=== PATIENT | male | born 1945 | race Caucasian/White ===

== ENCOUNTER → 2016-05-14 | Outpatient (CLI) | payer MEDICARE ==
--- NOTE | 2016-05-14 14:51 | Diagnostic Imaging Report ---
PROCEDURE: CT chest without contrast. TECHNIQUE: Multiple contiguous axial images were obtained through the chest without the use of intravenous contrast. INDICATION: COPD, follow-up chest exam. FINDINGS: The previous lung screening CT chest exam performed on 02/03/2016 noted a 0.9 cm nodular density in the left lung base near the costophrenic angle. This finding is felt to be secondary to scar formation. On this exam that density has more of a linear appearance than a nodule and I do suspect that this is related to scar formation and not a neoplastic mass. In the interval since the previous study, a new band of increased density has developed in the left lung base near the diaphragm. I suspect that this is secondary to scar formation/atelectasis as well. It would be less likely that there is an element of acute pneumonia present. The chronic pulmonary changes seen on the prior study are also again visualized and no different. There is no other parenchymal mass identified and there is no sign of failure, pneumonia, or pleural effusion to indicate an acute abnormality. The heart size is within normal limits and stable when compared to the prior exam. As noted on the prior study, there is a small pericardial effusion. This is unchanged when compared to the previous study. The coronary artery calcifications noted previously are also no different. As on the prior exam, the ascending aorta is dilated measuring 4.6 x 4.7 cm. The descending thoracic aorta is normal in caliber. There are few small nonspecific mediastinal nodes. The thyroid gland is unremarkable. There is no obvious breast mass. The sections through the upper abdomen fail to show any sign of an acute abnormality. The bone windows are unremarkable for a fracture or for a destructive lesion. IMPRESSION: 1. The nodular density in the left lung base seen previously has more of a linear appearance on this exam. This finding is felt to be secondary to scar formation and not to a malignant process. There also appears to be a new band of atelectasis/infiltrate in the left lung base. There is no other parenchymal abnormality to suggest malignancy, but a six-month follow-up CT chest exam will be recommended for continued evaluation. 2. There are chronic pulmonary changes present, but there is no sign of an acute abnormality. 3. The dilated ascending aorta seen previously appears stable. Dictated by: Dictated on workstation # [id number]
== END ==
LOC: RAD 13:06
PROVIDERS: ATTEND Nurse Practitioner Family
DX: J43.9 Emphysema, unspecified (principal); J42 Unspecified chronic bronchitis; E66.9 Obesity, unspecified; Z72.0 Tobacco use; R91.1 Solitary pulmonary nodule; R06.00 Dyspnea, unspecified
CPT/HCPCS: 71250

== ENCOUNTER → 2016-11-02 | Outpatient (CLI) | payer MEDICARE ==
--- NOTE | 2016-11-02 15:39 | Diagnostic Imaging Report ---
PROCEDURE: CT chest without contrast. TECHNIQUE: Multiple contiguous axial images were obtained through the chest without the use of intravenous contrast. INDICATION: Followup lung nodule. COPD. Chronic bronchitis. COMPARISON: CT chest of 05/14/2016. FINDINGS: Curvilinear area of thickening in the inferior lingula is demonstrating no definitive change allowing for slight difference in the appearance based on the technique and slice selection. There is upper lobe predominant emphysema. No significant consolidation or suspicious nodule seen. The thoracic aorta is normal in caliber. There is no mediastinal mass. The heart size is normal. There is a small pericardial effusion. The osseous structures appear grossly unremarkable. Slight nodularity in the right adrenal gland up to 1.2 cm in size is similar to prior exams likely related to an adenoma. IMPRESSION: 1. Curvilinear area of consolidation along the left lung base is likely related to atelectasis and scarring. 2. Small pericardial effusion. 3. Upper lobe predominant emphysema. Dictated by: Dictated on workstation # [id number]
== END ==
LOC: RAD 13:01
PROVIDERS: ATTEND Internal Medicine Critical Care Medicine
DX: J43.9 Emphysema, unspecified (principal); J90 Pleural effusion, not elsewhere classified; E66.9 Obesity, unspecified; Z72.0 Tobacco use
CPT/HCPCS: 71250

== ENCOUNTER → 2017-11-23 | Outpatient (CLI) | payer MEDICARE ==
--- NOTE | 2017-11-23 10:24 | Diagnostic Imaging Report ---
INDICATION: COPD and tobaccoism Exam compared to 11/02/2016 Low-dose nonenhanced screening protocol chest CT performed. Curvilinear subpleural opacity caudal aspect lingular segment left upper lobe shows reduction from prior consistent with an area of scarring and subsegmental atelectasis. No new or suspicious pulmonary nodule. Features of centrilobular emphysema chronic. No pneumothorax. No effusion. No thoracic aneurysm. There is coronary arterial atherosclerosis. IMPRESSION: Reduction in curvilinear subpleural atelectasis and/or scarring, lingula. No suspicious mass. L-RADS category 2 benign findings with annual low-dose CT followup in 12 months time recommended Dictated by: Dictated on workstation # [id number]
== END ==
LOC: RAD 09:37
PROVIDERS: ATTEND Nurse Practitioner Family
DX: J44.9 Chronic obstructive pulmonary disease, unspecified (principal); Z87.891 Personal history of nicotine dependence

== ENCOUNTER → 2018-12-20 | Outpatient (CLI) | payer MEDICARE ==
--- NOTE | 2018-12-20 14:45 | Diagnostic Imaging Report ---
TIME OF EXAM: 12/20/2018 11:24 AM REASON FOR EXAM: Lung cancer screening. SMOKING HX,COPD,HX OF LUNG NODULES COMPARISON: 11/23/2017. TECHNIQUE: Low Dose CT helical images obtained through the chest. CTDI vol: 85.7 mGy FINDINGS: Nodules: -- A) 3 mm, indeterminate noncalcified groundglass right upper lobe nodule (image 58, series 2). Lungs: Lung volumes are normal. Centrilobular emphysema is seen throughout the lungs. No evidence of fibrosis. There is no appreciable bronchiectasis. Bronchial wall thickening is seen throughout the lungs. No pulmonary mass or consolidation is present. No central endoluminal airway lesion is seen. Heart and Mediastinum: Heart size is within normal limits. Small amount of coronary calcifications are present. Aortic atherosclerosis is present. The ascending aorta is enlarged measuring 4.9 cm. A small pericardial effusion is present. No axillary, supraclavicular, mediastinal, internal mammary, or hilar adenopathy is present by CT size criteria. Normal size and attenuation of the visualized thyroid gland. Pleura: Normal pleural spaces. No effusion or pneumothorax. No pleural nodularity or mass. Abdomen: Included views of the upper abdomen demonstrate no acute abnormality. Bones and soft tissues: Regional skeletal and soft tissue structures are age-appropriate. IMPRESSION: 1. Stable 3 mm nodule in the right upper lobe. No new suspicious nodules. Recommend continued annual screening with low-dose chest CT. 2. No thoracic lymphadenopathy. 3. Ascending thoracic aneurysm measuring approximately 4.9 cm. This is relatively similar in size compared to prior exams. 4. Mild bronchial wall thickening, which can be seen with bronchitis/bronchiolitis. No focal consolidation. RESULT CODE: Category 2: Benign Appearance or Behavior FOLLOW UP: Continue annual screening with LDCT in 12 months Dictated by: Dictated on workstation # [id number]
== END ==
LOC: RAD 10:44
PROVIDERS: ATTEND Nurse Practitioner Family
DX: Z12.2 Encounter for screening for malignant neoplasm of respiratory organs (principal); J44.9 Chronic obstructive pulmonary disease, unspecified; I71.2 Thoracic aortic aneurysm, without rupture; F17.210 Nicotine dependence, cigarettes, uncomplicated; R91.1 Solitary pulmonary nodule

== ENCOUNTER → 2019-04-26 | Outpatient (CLI) | payer MEDICARE ==
[~2019-04-26] MED LIST: HOLD METFORMIN - RECEIVED CONTRAST 20 ML VIAL IV SCH; IOHEXOL 350 MG/ML 100 ML (OMNIPAQUE 350) VIAL IV ONE; NS 100 ML (IVPB) BAG IV ONE; RT-ALBUTEROL SULF 2.5 MG/3 ML PRE-MIX VIAL INH ONE
[2019-04-26 12:01] LABS: BUN/CREATININE RATIO 15; CREATININE SERUM 0.96 MG/DL (0.60-1.30); GFR ESTIMATED > 60
--- NOTE | 2019-04-26 13:15 | Diagnostic Imaging Report ---
EXAMINATION: CT Chest with intravenous contrast. TECHNIQUE: Multiple contiguous axial images were obtained through the chest after the uneventful administration of intravenous contrast. All CT scans use one or more of the following dose optimizing techniques: automated exposure control, MA and/or KvP adjustment based on a patient size and exam type, or iterative reconstruction. HISTORY: Pneumonia. COMPARISON: 11/02/2016. FINDINGS: The lungs are clear without edema or pneumonia. No pleural effusion or pneumothorax. No suspicious nodules. Lungs are emphysematous. Heart size is normal. No pericardial effusion. There is a stable 4.7 cm ascending aortic aneurysm. There are moderate coronary artery calcifications. There is no axillary or supraclavicular lymphadenopathy. There is no mediastinal lymphadenopathy. There is a stable 12 mm right adrenal nodule. There are no suspicious osseous lesions. IMPRESSION: 1. Emphysematous lungs. 2. Stable 4.7 cm ascending aortic aneurysm. 3. Stable 12 mm right adrenal nodule. Dictated by: Dictated on workstation # [id number]
== END ==
LOC: RAD 11:27
PROVIDERS: ATTEND Nurse Practitioner Family
DX: J18.9 Pneumonia, unspecified organism (principal); J43.9 Emphysema, unspecified; R09.02 Hypoxemia; E66.9 Obesity, unspecified; Z72.0 Tobacco use; I71.4 Abdominal aortic aneurysm, without rupture; E27.9 Disorder of adrenal gland, unspecified
CPT/HCPCS: 36415; 71260; 82565; 84520; 94060; 94726; 94729

== ENCOUNTER 2019-06-09 12:54 | Outpatient (CLI) | payer MEDICARE | END 2019-06-09 13:40 | disposition home or self-care (01) | LOC: SLEEP 12:54 | PROVIDERS: ATTEND Nurse Practitioner Family | DX: G47.10 Hypersomnia, unspecified (principal); G47.8 Other sleep disorders ==

== ENCOUNTER 2020-03-12 13:36 | Outpatient (RCR) | payer MEDICARE ==
[2020-03-12 13:49] LABS: BASOPHILS % (AUTO) 0 % (0-10); EOSINOPHILS # (AUTO) 0.1 10^3/uL (0.0-0.3); EOSINOPHILS % (AUTO) 1 % (0-10); HEMATOCRIT 47 % (40-54); HEMOGLOBIN 16.1 g/dL (13.3-17.7); LYMPHOCYTES # (AUTO) 2.5 10^3/uL (1.0-4.0); LYMPHOCYTES % (AUTO) 20 % (12-44); MEAN CORPUSCULAR HEMOGLOBIN 32 pg (25-34); MEAN CORPUSCULAR HGB CONC 35 g/dL (32-36); MEAN CORPUSCULAR VOLUME 93 fL (80-99); MEAN PLATELET VOLUME 8.7 fL (9.0-12.2); MONOCYTES # (AUTO) 0.9 10^3/uL (0.0-1.0); MONOCYTES % (AUTO) 7 % (0-12); NEUTROPHILS # (AUTO) 8.8 10^3/uL (1.8-7.8); NEUTROPHILS % (AUTO) 71 % (42-75); PLATELET COUNT 275 10^3/uL (130-400); WHITE BLOOD COUNT 12.3 10^3/uL (4.3-11.0)
[2020-03-12 14:15] LABS: ALANINE AMINOTRANSFERASE 22 U/L (0-55); ALKALINE PHOSPHATASE 78 U/L (40-136); BILIRUBIN,TOTAL 0.8 MG/DL (0.1-1.0); BUN/CREATININE RATIO 14; CALCIUM 9.5 MG/DL (8.5-10.1); CARBON DIOXIDE 25 MMOL/L (21-32); CHLORIDE 102 MMOL/L (98-107); CREATININE SERUM 1.01 MG/DL (0.60-1.30); GFR ESTIMATED > 60; GLUCOSE 121 MG/DL (70-105); POTASSIUM 3.7 MMOL/L (3.6-5.0); SODIUM 138 MMOL/L (135-145); TOTAL PROTEIN 6.8 GM/DL (6.4-8.2)
== END 2020-06-10 | disposition home or self-care (01) ==
LOC: ONC 13:36
PROVIDERS: ATTEND Internal Medicine Hematology & Oncology
DX: I26.99 Other pulmonary embolism without acute cor pulmonale (principal); I10 Essential (primary) hypertension; J44.9 Chronic obstructive pulmonary disease, unspecified; Z72.0 Tobacco use; Z79.01 Long term (current) use of anticoagulants
CPT/HCPCS: 80053; 81240; 81241; 85025; G0463; 99214

== ENCOUNTER → 2020-05-20 | Outpatient (CLI) | payer MEDICARE ==
--- NOTE | 2020-05-20 16:04 | Diagnostic Imaging Report ---
CT Lung Screening INDICATION: Current smoker with a 61 pack year history. Chest pain TECHNIQUE: Noncontrast, low-dose CT imaging performed according to lung cancer screening protocol. Auto Exposure Controls were utilized during the CT exam to meet ALARA standards for radiation dose reduction. COMPARISON: 04/26/2019 - 02/03/2016 FINDINGS: HEART/MEDIASTINUM: Heart size is within normal limits. There is rather prominent coronary artery calcification particularly in the region of the LAD. Small anterior pericardial effusion, stable. Unchanged prominence of the ascending aorta at 5 cm. There are scattered mildly prominent but nonpathologic large mediastinal lymph nodes. LUNGS/MEASURED PULMONARY NODULES: Emphysematous change about the lung parenchyma. A somewhat bubbly appearance about the proximal left upper lobe bronchus favors probable secretions. Mild peribronchial wall thickening is noted diffusely. Unchanged faint anterior right upper lobe pulmonary nodule. No concerning pulmonary mass. OTHER: None. IMPRESSION: 1. Emphysematous changes about the lung parenchyma. No new concerning pulmonary mass. 2. Generally stable appearance about the 5 cm ascending aortic aneurysm. LUNG-RADS CATEGORY: 2 LUNG SCREENING MANAGEMENT/RECOMMENDATIONS: Continued annual screening with low dose CT in 12 months. Notes: Lung rads category 1 or 2 does not mean that an individual does not have lung cancer or other active disease process, but rather nothing is identified to meet criteria for current lung pathology. Therefore, continued annual lung cancer screening should be performed. Please note that this is a low dose CT examination, intended for lung cancer screening of high risk patients. As a technical result, the examination is limited in diagnostic quality compared to a conventional CT examination of the chest. Dictated by: Dictated on workstation # [id number]
== END ==
LOC: RAD 15:45
PROVIDERS: ATTEND Nurse Practitioner Family
DX: Z12.2 Encounter for screening for malignant neoplasm of respiratory organs (principal); J43.9 Emphysema, unspecified; I71.4 Abdominal aortic aneurysm, without rupture; F17.210 Nicotine dependence, cigarettes, uncomplicated
CPT/HCPCS: 71271

== ENCOUNTER → 2020-11-01 | Outpatient (CLI) | payer MEDICARE ==
[~2020-11-01] MED LIST changes: +CATHETER FLUSH 10 ML SYR IV PRN; -RT-ALBUTEROL SULF 2.5 MG/3 ML PRE-MIX VIAL INH ONE
[2020-11-01 08:28] LABS: BUN/CREATININE RATIO 18; CREATININE SERUM 0.87 MG/DL (0.60-1.30); GFR ESTIMATED > 60
--- NOTE | 2020-11-01 10:27 | Diagnostic Imaging Report ---
EXAMINATION: CT chest with intravenous contrast. TECHNIQUE: Multiple contiguous axial images were obtained through the chest after the uneventful administration of intravenous contrast. All CT scans use one or more of the following dose optimizing techniques: automated exposure control, MA and/or KvP adjustment based on patient size and exam type or iterative reconstruction. HISTORY: Chronic obstructive pulmonary disease COMPARISON: 05/20/2020 FINDINGS: There is no edema or pneumonia. No pleural effusion. No pneumothorax. No suspicious nodules. Lungs are moderately emphysematous. There is no axillary or supraclavicular lymphadenopathy. There is no mediastinal lymphadenopathy. Heart size is normal. There are moderate coronary artery calcifications. No pericardial effusion. There is a stable 4.7 cm ascending aortic aneurysm. Limited views of the upper abdomen show stable small right adrenal nodule. There is a stable presumed hemangioma in segment 8 of the liver. There are no suspicious osseus lesions. There is hemangioma in a mid thoracic vertebrae. IMPRESSION: 1. Stable moderate emphysema and 4.7 cm ascending aortic aneurysm. Dictated by: Dictated on workstation # [id number]
== END ==
LOC: RAD 09:15
PROVIDERS: ATTEND Nurse Practitioner Family
DX: J43.9 Emphysema, unspecified (principal); I71.4 Abdominal aortic aneurysm, without rupture
CPT/HCPCS: 36415; 71260; 82565; 84520

== ENCOUNTER → 2021-08-20 | Outpatient (CLI) | payer MEDICARE ==
--- NOTE | 2021-08-20 11:50 | Diagnostic Imaging Report ---
PROCEDURE: CT chest with contrast only. TECHNIQUE: Multiple contiguous axial images were obtained through the chest after administration of intravenous contrast. Auto Exposure Controls were utilized during the CT exam to meet ALARA standards for radiation dose reduction. INDICATION: Thoracic aortic aneurysm COMPARISON: 11/01/2020 and 05/20/2020, and 04/26/2019 FINDINGS: No significant adenopathy of the chest. Scattered vascular calcifications, including significant calcifications versus stents within the coronary arteries. Aneurysmal dilatation of the ascending thoracic aorta is again identified, measuring up to 4.6 cm in maximal dimension. This is stable since the prior exams. The aortic arch measures up to 3.5 x 3.3 cm. No aortic dissection. Stable small pericardial effusion. No significant pleural effusion. The trachea is patent. No pneumothorax. Moderate background emphysematous changes. No suspicious pulmonary nodule or opacity is identified. Stable hypodensity within the dome of the liver, favored related to a hemangioma. Additional hyperenhancing lesions within the liver also identified and unchanged since the prior exam. Small right adrenal gland nodule is present and unchanged since 02/03/2016, consistent with benign etiology. A 2.1 cm round hypodensity is identified within the central aspect of the right kidney. This is not definitely consistent with a benign cyst. Additionally ill-defined 1 cm hypodensity within the posterior aspect of the right mid kidney is also present. Bilateral renal cysts are also noted. Fatty infiltration of the pancreas. Mild scattered osseous degenerative changes without acute osseous abnormality. IMPRESSION: Stable aneurysmal dilatation of the ascending thoracic aorta. Indeterminate right renal lesions as described above. 2 regions within the right kidney are not definitely consistent with simple cyst. Recommend a CT of the abdomen with and without contrast using renal mass protocol for further evaluation. Moderate background emphysematous changes without suspicious pulmonary nodule. Small benign right adrenal gland nodule. This is stable. Additional findings as above. Dictated by: Dictated on workstation # [id number]
== END ==
LOC: RAD 09:45
PROVIDERS: ATTEND Internal Medicine
DX: I71.2 Thoracic aortic aneurysm, without rupture (principal); N28.9 Disorder of kidney and ureter, unspecified; J43.9 Emphysema, unspecified; E27.9 Disorder of adrenal gland, unspecified
CPT/HCPCS: 71260